=== PATIENT | female | born 1985 | race Two or more races ===

== ENCOUNTER 2019-08-10 09:33 | Inpatient (IN) | payer SELFPAY ==
[~2019-08-10] VITALS: Ht 160 cm; Wt 50.8 kg
[2019-08-10] MEDS ORDERED: SODIUM CHLORIDE 0.9% 1,000 ML IV ONE (10:03)
[2019-08-10] MEDS ORDERED: ONDANSETRON HCL 4MG/2ML INJ IV ONE (10:15)
[2019-08-10 10:39] LABS: CLARITY URINE CLEAR (CLEAR); COLOR URINE DARK YELLOW (YELLOW); KETONES URINE 2+ (NEGATIVE); LEUKOCYTE ESTERASE URINE NEGATIVE (NEGATIVE); NITRITE URINE NEGATIVE (NEGATIVE); OCCULT BLOOD URINE NEGATIVE (NEGATIVE); PH URINE 7.5 (4.5-8.0); PROTEIN URINE TRACE (NEGATIVE); SPECIFIC GRAVITY URINE 1.027 (1.005-1.030)
[2019-08-10 10:41] LABS: BASOPHILS % 0.5 % (0.0-2.0); EOSINOPHILS % 0.3 % (0.0-5.0); HEMATOCRIT. 33.9 % (36.0-48.0); HEMOGLOBIN. 11.4 g/dL (12.0-16.0); LYMPHOCYTES % 21.7 % (20.0-50.0); MEAN PLATELET VOLUME 8.1 fl (7.4-10.4); MONOCYTES % 6.4 % (2.0-8.0); NEUTROPHILS % 71.1 % (40.0-76.0); PLATELET 288 x1000/uL (130-400); RED BLOOD CELL COUNT 3.69 mill/uL (4.2-5.4); RED CELL DISTRIBUTION WIDTH 14.1 % (11.6-14.6)
[2019-08-10 10:45] LABS: CHLORIDE 106 mEq/L (98-107); INR 1.1; PROTHROMBIN TIME 11.2 sec (9.6-11.0)
[2019-08-10 10:57] LABS: *AMPHETAMINES SCREEN URINE NEGATIVE (NEGATIVE); *BARBITURATES SCREEN URINE NEGATIVE (NEGATIVE); *BENZODIAZEPINES SCREEN URINE NEGATIVE (NEGATIVE); *COCAINE SCREEN URINE NEGATIVE (NEGATIVE); METHADONE URINE SCREEN NEGATIVE (NEGATIVE); OPIATES URINE SCREEN NEGATIVE (NEGATIVE)
[2019-08-10 10:58] LABS: PHENCYCLIDINE URINE SCREEN NEGATIVE (NEGATIVE)
[2019-08-10 11:00] LABS: CANNABINOID URINE SCREEN PRESUMTIVE POSITIVE (NEGATIVE)
[2019-08-10 11:09] LABS: B-HCG QUANTITATIVE 13194 mIU/mL (<3)
[2019-08-10] MEDS ORDERED: CEFAZOLIN 1000MG PREMIX 50 ML IV ONE (11:45)
[2019-08-10 12:00] VITALS: BP 98/52
[2019-08-10 13:15] VITALS: BP 98/52
[2019-08-10] MEDS ORDERED: VASOPRESSIN 20 UNIT/ML 1ML ONE (13:31)
[2019-08-10] MEDS ORDERED: FENTANYL CITRATE/PF 50MCG/ML 2ML VIAL ONE ×3 (13:58→16:06)
[2019-08-10] MEDS ORDERED: MIDAZOLAM HCL 2 MG/2 ML VIAL ONE (13:58)
[2019-08-10] MEDS ORDERED: LIDOCAINE HCL/PF 1% 10 MG/ML 5ML VIAL ONE (13:59)
[2019-08-10] MEDS ORDERED: PROPOFOL 200MG/20ML VIAL IV ONE (13:59)
[2019-08-10] MEDS ORDERED: ROCURONIUM BROMIDE 10MG/ML VIAL 5ML IV ONE (14:03)
[2019-08-10] MEDS ORDERED: PHENYLEPHRINE HCL 10 MG/ML 1ML (IV VIAL) IV ONE (14:04)
[2019-08-10] MEDS ORDERED: METOCLOPRAMIDE HCL 10MG/2ML VIAL ONE (14:04)
[2019-08-10] MEDS ORDERED: ONDANSETRON HCL 4MG/2ML INJ ONE (14:04)
[2019-08-10] MEDS ORDERED: SUCCINYLCHOLINE CHLORIDE 200MG/10ML IV ONE (14:12)
[2019-08-10] MEDS ORDERED: SODIUM CHLORIDE 0.9% 10ML VIAL ONE (14:28)
[2019-08-10] MEDS ORDERED: EPHEDRINE SULFATE 50MG/ML VIAL ONE (14:28)
[2019-08-10] MEDS ORDERED: BUPIVACAINE HCL/PF 0.25% (2.5MG/ML) 10ML ONE (14:36)
[2019-08-10] MEDS ORDERED: GLYCOPYRROLATE 0.2 MG/ML 2ML VIAL ONE (14:43)
[2019-08-10] MEDS ORDERED: NEOSTIGMINE METHYLSULFATE 1MG/ML 10 ML VIAL ONE (15:53)
[2019-08-10] MEDS ORDERED: ONDANSETRON HCL 4MG/2ML INJ IV PRN (16:15)
[2019-08-10] MEDS ORDERED: KETOROLAC 30MG/ML VIAL IM NR (16:15)
[2019-08-10] MEDS ORDERED: INFLUENZA VIRUS VACCINE(AFLURIA) 0.5ML SYR IM ONE (16:15)
[2019-08-10] MEDS ORDERED: IBUPROFEN 600MG TABLET PO PRN (16:15)
[2019-08-10] MEDS ORDERED: RHO(D) IMMUNE GLOBULIN 300 MCG/SYR IM ONE (16:15)
[2019-08-10] MEDS ORDERED: TETANUS, DIPHTHERIA, PERTUSSIS VAC/PF 0.5ML (>7YR OLD) IM ONE (16:15)
[2019-08-10] MEDS ORDERED: KETOROLAC 30MG/ML VIAL IV PRN (16:15)
[2019-08-10] MEDS: HYDROMORPHONE HCL/PF 2MG/ML CPJ IV PRN ×3 (16:38→17:19)
[2019-08-10 17:55] VITALS: BP 95/52
[2019-08-10 20:00] VITALS: BP 88/44
[2019-08-11] VITALS: BP 96/46
[2019-08-11] MEDS: KETOROLAC 30MG/ML VIAL IV PRN ×4 (00:11→20:28)
[2019-08-11 04:00] VITALS: BP 89/45
[2019-08-11 07:20] LABS: BASOPHILS % 0.1 % (0.0-2.0); EOSINOPHILS % 0.4 % (0.0-5.0); HEMATOCRIT. 28.3 % (36.0-48.0); HEMOGLOBIN. 9.7 g/dL (12.0-16.0); MEAN CORPUSCULAR HEMOGLOBIN 31.6 pg (28.0-32.0); MEAN CORPUSCULAR VOLUME 92.1 fL (81.0-99.0); MEAN PLATELET VOLUME 8.5 fl (7.4-10.4); MONOCYTES % 6.9 % (2.0-8.0); NEUTROPHILS % 75.6 % (40.0-76.0); PLATELET 230 x1000/uL (130-400); RED BLOOD CELL COUNT 3.07 mill/uL (4.2-5.4); RED CELL DISTRIBUTION WIDTH 13.7 % (11.6-14.6)
[2019-08-11 08:00] VITALS: BP 94/58
[2019-08-11] MEDS ORDERED: SIMETHICONE 80MG TABLET CHEW PO PRN (11:45)
[2019-08-11 12:00] VITALS: BP 84/51
[2019-08-11 16:00] VITALS: BP 99/59
[2019-08-11 20:00] VITALS: BP 101/63
[2019-08-12] VITALS: BP 98/53
[2019-08-12 04:00] VITALS: BP 104/64
[2019-08-12] MEDS: KETOROLAC 30MG/ML VIAL IV PRN ×3 (05:57→21:38)
[2019-08-12 08:00] VITALS: BP 94/58
[2019-08-12 12:00] VITALS: BP 95/57
[2019-08-12 16:00] VITALS: BP 101/64
[2019-08-12 20:00] VITALS: BP 100/61
[2019-08-13] VITALS: BP 111/79
[2019-08-13] MEDS: KETOROLAC 30MG/ML VIAL IV PRN ×2 (03:52→11:15)
[2019-08-13 04:00] VITALS: BP 102/60
[2019-08-13 08:00] VITALS: BP 92/56
[2019-08-13] MEDS ORDERED: IBUP-2029 PO (10:27)
[2019-08-13 12:00] VITALS: BP 91/59
[2019-08-13 13:19] VITALS: BP 91/59
== END 2019-08-13 14:18 | disposition home or self-care (01) | DRG 545 ==
LOC: EDBEDREQ 10:12 → EDBEDREQSVC 10:12 → ER 10:58 → 6EST 11:39 → EDBEDREQ 11:42 → ENRESERV 12:20
PROVIDERS: ADMIT Specialist; ATTEND Specialist
PROC: 10T20ZZ Resection of Products of Conception, Ectopic, Open Approach (ICD-10-PCS; principal; 2019-08-10)
PROC: 0UB50ZZ Excision of Right Fallopian Tube, Open Approach (ICD-10-PCS; 2019-08-10)
PROC: 0UJ84ZZ Inspection of Fallopian Tube, Percutaneous Endoscopic Approach (ICD-10-PCS; 2019-08-10)
DX: O00.101 Right tubal pregnancy without intrauterine pregnancy (principal); O99.321 Drug use complicating pregnancy, first trimester; F12.10 Cannabis abuse, uncomplicated; O99.331 Smoking (tobacco) complicating pregnancy, first trimester; F17.200 Nicotine dependence, unspecified, uncomplicated
CPT/HCPCS: 36415; 76801; 80053; 80305; 81003; 84702; 85025; 86850; 86900; 86920; 88305; 93005; 96361; 96365; 96372; 96375; 99291; J0330; J0690; J1170; J1885; J2250; J2370; J2405; J2704; J2710; J2765; J3010; J3490; J7030